=== PATIENT | female | born 1985 | race Caucasian/White ===

== ENCOUNTER 2021-08-10 12:16 | Emergency (ER) | payer BC ==
[2021-08-10] MEDS ORDERED: Sodium Chloride 0.9% 1000 ML 1,000 ML IV STA (13:01)
[2021-08-10] MEDS ORDERED: Sodium Chloride 0.9% 1000 ML 1,000 ML ONE (13:07)
--- NOTE | 2021-08-10 13:10 | ERPHSYRPT ---
- History of Present Illness Time Seen by Provider: 08/10/21 12:40 Source: patient Exam Limitations: no limitations Patient Subjective Stated Complaint: Dizziness Triage Nursing Assessment: Patient ambulated back to ED and transferred self to bed. Patient A+O X 3. Patient's skin pink, warm and dry. Patient complains of dizziness and neck soreness that started around 1130. Patient states her head felt heavy and made her neck sore. Patient also states her pulse had dropped 120 to 65. Patient states she is still dizzy. Physician History: Patient is a 36-year-old female presents to our ED from her place of employment for evaluation of dizziness. Patient states she was at work standing up when her symptoms started. Patient states she became dizzy. The room started spinning. Her body became weak. Her vision became blurred. She felt her head was heavy. Her neck began to feel sore. No syncope. No trauma. No seizure. Have improved but are still ongoing. Patient has a history of irritable bowel syndrome. She was recently diagnosed with enteritis. Patient is scheduled for colonoscopy. No associated chest pain. No nausea vomiting or diaphoresis. No diarrhea. No rash. No sick contacts at home. Patient is ambulatory. No focal or lateralizing symptoms. Patient voices no other complaints or concerns at this time. Timing/Duration: today Severity: moderate Modifying Factors: Improves With: nothing Associated Symptoms: No nausea, No vomiting, No abdominal pain, No shortness of breath, No diaphoresis, No cough, No chills, No chest pain, No fever, No headaches, No loss of appetite, No syncope, No seizure Allergies/Adverse Reactions: No Known Drug Allergies Allergy (Unverified 08/10/21 12:32) Home Medications: No Reportable Medications [No Reported Medications] 08/10/21 [History] Hx Influenza Vaccination/Date Given: No Hx Pneumococcal Vaccination/Date Given: No Immunizations Up to Date: Yes Travel Risk - International Travel Have you traveled outside of the country in past 3 weeks: No - Coronavirus Screening Are you exhibiting any of the following symptoms?: No Close contact with a COVID-19 positive Pt in past 14-21 Days: No - Vaccine Status Have you recieved a Covid-19 vaccination: No - Review of Systems Constitutional: No Symptoms, No Fever, No Chills Eyes: No Symptoms Ears, Nose, & Throat: No Symptoms Respiratory: No Symptoms, No Cough, No Dyspnea Cardiac: No Symptoms, No Chest Pain, No Edema, No Syncope Abdominal/Gastrointestinal: No Symptoms, No Abdominal Pain, No Nausea, No Vomiting, No Diarrhea Genitourinary Symptoms: No Symptoms, No Dysuria Musculoskeletal: No Symptoms, No Back Pain, No Neck Pain Skin: No Symptoms, No Rash Neurological: No Symptoms, No Dizziness, No Focal Weakness, No Sensory Changes Psychological: No Symptoms Endocrine: No Symptoms Hematologic/Lymphatic: No Symptoms Immunological/Allergic: No Symptoms All Other Systems: Reviewed and Negative - Past Medical History Pertinent Past Medical History: No Neurological History: No Pertinent History ENT History: No Pertinent History Cardiac History: No Pertinent History Respiratory History: No Pertinent History Endocrine Medical History: No Pertinent History Musculoskeletal History: No Pertinent History GI Medical History: No Pertinent History History: No Pertinent History Psycho-Social History: No Pertinent History Female Reproductive Disorders: No Pertinent History - Past Surgical History Past Surgical History: Yes Gastrointestinal: Cholecystectomy Female Surgical History: Section Other Surgical History: C section X 2 - Social History Smoking Status: Current every day smoker How long have you smoked: years Exposure to second hand smoke: No Drug Use: none Patient Lives Alone: No - Female History Hx Last Menstrual Period: last month Hx Now: No - Nursing Vital Signs Nursing Vital Signs: Initial Vital Signs Temperature 97.8 F 08/10/21 12:33 Blood Pressure 130/89 08/10/21 12:33 Pain Scale Pain Intensity 0 - Physical Exam General Appearance: no apparent distress, alert Eye Exam: PERRL/EOMI, eyes nml inspection Ears, Nose, Throat Exam: normal ENT inspection, TMs normal, pharynx normal, moist mucous membranes Neck Exam: normal inspection, non-tender, supple, full range of motion Respiratory Exam: normal breath sounds, lungs clear, airway intact, No respiratory distress Cardiovascular Exam: regular rate/rhythm, normal heart sounds, normal peripheral pulses Gastrointestinal/Abdomen Exam: soft, normal bowel sounds, No tenderness, No mass Back Exam: normal inspection, normal range of motion, No CVA tenderness, No vertebral tenderness Extremity Exam: normal inspection, normal range of motion, pelvis stable Neurologic Exam: alert, oriented x 3, cooperative, normal mood/affect, nml cerebellar function, nml station & gait, sensation nml, No motor deficits Skin Exam: normal color, warm, dry, No rash Lymphatic Exam: No adenopathy SpO2 Interpretation: normal SpO2: 98 O2 Delivery: Room Air - Course Nursing assessment & vital signs reviewed: Yes EKG Interpreted by Me: RATE (81), Sinus Rhythm, NORMAL AXIS, NORMAL INTERVALS - CT Exams Head CT Interpretation: Tele-radiologist Report (Normal CT head without contrast.) Ordered Tests: Active Orders 24 hr Category Date Time Status EKG-ER Only STAT Care 08/10/21 13:01 Active IV Insertion STAT Care 08/10/21 13:01 Active HEAD WITHOUT CONTRAST [CT] Stat Exams 08/10/21 13:03 Completed CBC W DIFF Stat Lab 08/10/21 12:48 Completed CMP Stat Lab 08/10/21 12:48 Completed D-DIMER QUANTITATIVE Stat Lab 08/10/21 14:44 Completed HCG,QUALITATIVE URINE Stat Lab 08/10/21 13:05 Completed LIPASE Stat Lab 08/10/21 12:48 Completed TROPONIN Q3H Lab 08/10/21 12:48 Completed TROPONIN Q3H Lab 08/10/21 16:15 Ordered TROPONIN Q3H Lab 08/10/21 19:15 Ordered TROPONIN Q3H Lab 08/10/21 22:15 Ordered TROPONIN Q3H Lab 08/11/21 01:15 Ordered TSH, 3RD Generation Stat Lab 08/10/21 12:48 Completed UA W/RFX CULTURE Stat Lab 08/10/21 13:05 Completed Urine Triage Profile Stat Lab 08/10/21 13:05 Completed Medication Summary Discontinued Medications Generic Name Dose Route Start Last Admin Trade Name Freq PRN Reason Stop Dose Admin Sodium Chloride 1,000 mls @ 999 mls/hr 08/10/21 13:01 08/10/21 14:10 Sodium Chloride 0.9% 1000 Ml IV 08/10/21 14:01 Infused .Q1H1M STA Infusion Sodium Chloride Confirm 08/10/21 13:07 Sodium Chloride 0.9% 1000 Ml Administered 08/10/21 13:08 Dose 1,000 mls @ ud .ROUTE .[facility] Lab/Rad Data: Laboratory Result Diagrams 08/10/21 12:48 08/10/21 12:48 Laboratory Results 08/10/21 08/10/21 08/10/21 Range/Units 14:44 13:05 13:05 WBC (4.0-10.5) x10^3/uL RBC (4.1-5.4) x10^6/uL Hgb (12.0-16.0) g/dL Hct (35-47) % MCV (78-100) fL MCH (26-32) pg MCHC (32-36) g/dL RDW (11.5-14.0) % Plt Count (150-450) x10^3/uL MPV (7.5-11.0) fL Gran % (36.0-66.0) % Immature Gran % (Auto) (0.00-0.4) % Nucleat RBC Rel Count (0.00-0.1) % Eos # (Auto) (0-0.5) x10^3/uL Immature Gran # (Auto) (0.00-0.03) x10^3u/L Absolute Lymphs (auto) (1.0-4.6) x10^3/uL Absolute Monos (auto) (0.0-1.3) x10^3/uL Absolute Nucleated RBC (0.00-0.01) x10^3u/L Lymphocytes % (24.0-44.0) % Monocytes % (0.0-12.0) % Eosinophils % (0.00-5.0) % Basophils % (0.0-0.4) % Absolute Granulocytes (1.4-6.9) x10^3/uL Basophils # (0-0.4) x10^3/uL D-Dimer 0.19 (0.0-0.50) ng/mL Sodium (137-145) mmol/L Potassium (3.5-5.1) mmol/L Chloride (98-107) mmol/L Carbon Dioxide (22-30) mmol/L Anion Gap (5-15) MEQ/L BUN (7-17) mg/dL Creatinine (0.52-1.04) mg/dL Estimated GFR ML/MIN Glucose (74-106) mg/dL Calcium (8.4-10.2) mg/dL Total Bilirubin (0.2-1.3) mg/dL AST (14-36) U/L ALT (0-35) U/L Alkaline Phosphatase (38-126) U/L Troponin I (0.000-0.034) ng/mL Serum Total Protein (6.3-8.2) g/dL Albumin (3.5-5.0) g/dL Lipase (23-300) U/L TSH 3rd Generation (0.47-4.68) mIU/L Urinalys Dipstick Clnc MAIN LAB Urine Color YELLOW (YELLOW) Urine Appearance CLEAR (CLEAR) Urine pH 5.5 (5-6) Ur Specific [place] <=1.005 (1.005-1.025) POC Urine Protein Conf NEGATIVE (Negative) Urine Ketones NEGATIVE (NEGATIVE) Urine Nitrite NEGATIVE (NEGATIVE) Urine Bilirubin NEGATIVE (NEGATIVE) Urine Urobilinogen 0.2 (0-1) mg/dL Urine Leukocytes NEGATIVE (NEGATIVE) Urine WBC (Auto) 0-2 (0-5) /HPF Urine RBC (Auto) 0-2 (0-2) /HPF U Epithel Cells (Auto) RARE (FEW) /HPF Urine Bacteria (Auto) RARE (NEGATIVE) /HPF Urine RBC TRACE-INTACT (0-5) [place]/ul Ur Culture Indicated? NO Urine Glucose NEGATIVE (NEGATIVE) mg/dL Urine HCG, Qual NEGATIVE (Negative) Urine Opiates Level (NEGATIVE) Ur Methadone (NEGATIVE) Urine Barbiturates (NEGATIVE) Ur Phencyclidine (PCP) (NEGATIVE) Urine Amphetamine (NEGATIVE) U Benzodiazepine Level (NEGATIVE) Urine Cocaine (NEGATIVE) Urine Marijuana (THC) (NEGATIVE) 08/10/21 08/10/21 08/10/21 Range/Units 13:05 12:48 12:48 WBC (4.0-10.5) x10^3/uL RBC (4.1-5.4) x10^6/uL Hgb (12.0-16.0) g/dL Hct (35-47) % MCV (78-100) fL MCH (26-32) pg MCHC (32-36) g/dL RDW (11.5-14.0) % Plt Count (150-450) x10^3/uL MPV (7.5-11.0) fL Gran % (36.0-66.0) % Immature Gran % (Auto) (0.00-0.4) % Nucleat RBC Rel Count (0.00-0.1) % Eos # (Auto) (0-0.5) x10^3/uL Immature Gran # (Auto) (0.00-0.03) x10^3u/L Absolute Lymphs (auto) (1.0-4.6) x10^3/uL Absolute Monos (auto) (0.0-1.3) x10^3/uL Absolute Nucleated RBC (0.00-0.01) x10^3u/L Lymphocytes % (24.0-44.0) % Monocytes % (0.0-12.0) % Eosinophils % (0.00-5.0) % Basophils % (0.0-0.4) % Absolute Granulocytes (1.4-6.9) x10^3/uL Basophils # (0-0.4) x10^3/uL D-Dimer (0.0-0.50) ng/mL Sodium 138 (137-145) mmol/L Potassium 3.7 (3.5-5.1) mmol/L Chloride 105 (98-107) mmol/L Carbon Dioxide 21 L (22-30) mmol/L Anion Gap 15.8 H (5-15) MEQ/L BUN 8 (7-17) mg/dL Creatinine 0.53 (0.52-1.04) mg/dL Estimated GFR > 60.0 ML/MIN Glucose 89 (74-106) mg/dL Calcium 9.3 (8.4-10.2) mg/dL Total Bilirubin 0.70 (0.2-1.3) mg/dL AST 21 (14-36) U/L ALT 14 (0-35) U/L Alkaline Phosphatase 60 (38-126) U/L Troponin I < 0.012 (0.000-0.034) ng/mL Serum Total Protein 7.7 (6.3-8.2) g/dL Albumin 4.5 (3.5-5.0) g/dL Lipase 125 (23-300) U/L TSH 3rd Generation 0.629 (0.47-4.68) mIU/L Urinalys Dipstick Clnc Urine Color (YELLOW) Urine Appearance (CLEAR) Urine pH (5-6) Ur Specific [place] (1.005-1.025) POC Urine Protein Conf (Negative) Urine Ketones (NEGATIVE) Urine Nitrite (NEGATIVE) Urine Bilirubin (NEGATIVE) Urine Urobilinogen (0-1) mg/dL Urine Leukocytes (NEGATIVE) Urine WBC (Auto) (0-5) /HPF Urine RBC (Auto) (0-2) /HPF U Epithel Cells (Auto) (FEW) /HPF Urine Bacteria (Auto) (NEGATIVE) /HPF Urine RBC (0-5) [place]/ul Ur Culture Indicated? Urine Glucose (NEGATIVE) mg/dL Urine HCG, Qual (Negative) Urine Opiates Level NEGATIVE (NEGATIVE) Ur Methadone NEGATIVE (NEGATIVE) Urine Barbiturates NEGATIVE (NEGATIVE) Ur Phencyclidine (PCP) NEGATIVE (NEGATIVE) Urine Amphetamine NEGATIVE (NEGATIVE) U Benzodiazepine Level NEGATIVE (NEGATIVE) Urine Cocaine NEGATIVE (NEGATIVE) Urine Marijuana (THC) NEGATIVE (NEGATIVE) 08/10/21 Range/Units 12:48 WBC 9.4 (4.0-10.5) x10^3/uL RBC 4.35 (4.1-5.4) x10^6/uL Hgb 13.1 (12.0-16.0) g/dL Hct 40.7 (35-47) % MCV 93.6 (78-100) fL MCH 30.1 (26-32) pg MCHC 32.2 (32-36) g/dL RDW 13.7 (11.5-14.0) % Plt Count 312 (150-450) x10^3/uL MPV 10.2 (7.5-11.0) fL Gran % 65.0 (36.0-66.0) % Immature Gran % (Auto) 0.4 (0.00-0.4) % Nucleat RBC Rel Count 0.0 (0.00-0.1) % Eos # (Auto) 0.04 (0-0.5) x10^3/uL Immature Gran # (Auto) 0.04 H (0.00-0.03) x10^3u/L Absolute Lymphs (auto) 2.56 (1.0-4.6) x10^3/uL Absolute Monos (auto) 0.60 (0.0-1.3) x10^3/uL Absolute Nucleated RBC 0.00 (0.00-0.01) x10^3u/L Lymphocytes % 27.2 (24.0-44.0) % Monocytes % 6.4 (0.0-12.0) % Eosinophils % 0.4 (0.00-5.0) % Basophils % 0.6 (0.0-0.4) % Absolute Granulocytes 6.12 (1.4-6.9) x10^3/uL Basophils # 0.06 (0-0.4) x10^3/uL D-Dimer (0.0-0.50) ng/mL Sodium (137-145) mmol/L Potassium (3.5-5.1) mmol/L Chloride (98-107) mmol/L Carbon Dioxide (22-30) mmol/L Anion Gap (5-15) MEQ/L BUN (7-17) mg/dL Creatinine (0.52-1.04) mg/dL Estimated GFR ML/MIN Glucose (74-106) mg/dL Calcium (8.4-10.2) mg/dL Total Bilirubin (0.2-1.3) mg/dL AST (14-36) U/L ALT (0-35) U/L Alkaline Phosphatase (38-126) U/L Troponin I (0.000-0.034) ng/mL Serum Total Protein (6.3-8.2) g/dL Albumin (3.5-5.0) g/dL Lipase (23-300) U/L TSH 3rd Generation (0.47-4.68) mIU/L Urinalys Dipstick Clnc Urine Color (YELLOW) Urine Appearance (CLEAR) Urine pH (5-6) Ur Specific [place] (1.005-1.025) POC Urine Protein Conf (Negative) Urine Ketones (NEGATIVE) Urine Nitrite (NEGATIVE) Urine Bilirubin (NEGATIVE) Urine Urobilinogen (0-1) mg/dL Urine Leukocytes (NEGATIVE) Urine WBC (Auto) (0-5) /HPF Urine RBC (Auto) (0-2) /HPF U Epithel Cells (Auto) (FEW) /HPF Urine Bacteria (Auto) (NEGATIVE) /HPF Urine RBC (0-5) [place]/ul Ur Culture Indicated? Urine Glucose (NEGATIVE) mg/dL Urine HCG, Qual (Negative) Urine Opiates Level (NEGATIVE) Ur Methadone (NEGATIVE) Urine Barbiturates (NEGATIVE) Ur Phencyclidine (PCP) (NEGATIVE) Urine Amphetamine (NEGATIVE) U Benzodiazepine Level (NEGATIVE) Urine Cocaine (NEGATIVE) Urine Marijuana (THC) (NEGATIVE) - Progress Progress: improved Progress Note: Patient reassessed. She feels better. Patient believes IV fluids helped her. Smoking cessation discussed. CT head unremarkable. Basic labs nonremarkable. D-dimer negative. TSH is borderline normal on our testing today. Urinalysis negative. Troponin negative. Urine triage negative. Orthostatics performed. Orthostatics marginally positive. Patient may benefit from a tilt table test. Will discharge at this time. Patient advised to follow-up with primary care doctor within 48 hours for evaluation. Patient states she has been experiencing the symptoms for some time. She has been worked up several times in the past. Patient states nobody can figure out what the problem is. Patient symptoms may be postural/orthostatic hypotension. Patient advised of this possibility and will discuss further testing with her primary care doctor. Portions of this note were created with voice recognition technology. There may be grammatical, spelling, punctuation or sound alike errors 08/10/21 15:00 Counseled pt/family regarding: lab results, diagnosis, need for follow-up, rad results - Departure Departure Disposition: Home Clinical Impression: Dizziness, Near syncope, Orthostatic hypotension Condition: Stable Critical Care Time: No Referrals: ABIGAIL RAMOS MD [Primary Care Provider] - Follow up/PCP as directed Additional Instructions: Discharge/Care Plan DAMEON VILLALPANDO was seen on 08/10/21 in the Emergency Room. The patient was counseled regarding Diagnosis,Lab results, Imaging studies, need for follow up and when to return to the Emergency Room. Prescriptions given: Discharge Note I have spoken with the patient and/or caregivers. I have explained the patient's condition, diagnosis and treatment plan based on the information available to me at this time. I have answered the patient's and/or caregiver's questions and addressed any concerns. The patient and/or caregivers have as good understanding of the patient's diagnosis, condition and treatment plan as can be expected at this point. The vital signs have been stable. The patient's condition is stable and appropriate for discharge from the emergency department. The patient will pursue further outpatient evaluation with the primary care physician or other designated or consulting physician as outlined in the discharge instructions. The patient and/or caregivers are agreeable to this plan of care and follow-up instructions have been explained in detail. The patient and/or caregivers have received these instruction. The patient/and or caregivers are aware that any significant change in condition or worsening of symptoms should prompt an immediate return to this or the closest emergency department or call 911. Forms: Work/School Release Form
[2021-08-10 13:11] VITALS: O2SAT 98
[2021-08-10 13:14] LABS: Absolute Neutrophil Ct (ANC) 6.12 x10^3/uL (1.4-6.9); Basophil (Absolute #) 0.06 x10^3/uL (0-0.4); Eosinophil % 0.4 % (0.00-5.0); Eosinophil (Absolute #) 0.04 x10^3/uL (0-0.5); Hematocrit 40.7 % (35-47); Hemoglobin 13.1 g/dL (12.0-16.0); Lymphocyte (Absolute #) 2.56 x10^3/uL (1.0-4.6); Lymphocytes % 27.2 % (24.0-44.0); Mean Cell Volume 93.6 fL (78-100); Mean Corpuscular Hemoglobin 30.1 pg (26-32); Mean Corpuscular Hgb Concent. 32.2 g/dL (32-36); Mean Platelet Volume 10.2 fL (7.5-11.0); Monocytes % 6.4 % (0.0-12.0); Platelet Count 312 x10^3/uL (150-450); Red Blood Count 4.35 x10^6/uL (4.1-5.4); Red Cell Distribution Width 13.7 % (11.5-14.0); White Blood Count 9.4 x10^3/uL (4.0-10.5)
[2021-08-10 13:39] LABS: Bacteria RARE /HPF (NEGATIVE); Epithelial Cells RARE /HPF (FEW); RBC 0-2 /HPF (0-2); WBC 0-2 /HPF (0-5)
[2021-08-10 13:40] LABS: Appearance CLEAR (CLEAR); Glucose NEGATIVE (NEGATIVE)
[2021-08-10 13:41] LABS: Bilirubin NEGATIVE (NEGATIVE); Ketones NEGATIVE (NEGATIVE); Nitrite NEGATIVE (NEGATIVE); Ph 5.5 (5-6); Protein,Urine Dip NEGATIVE (Negative); RBC TRACE-INTACT Ery/ul (0-5); Specific Gravity <=1.005 (1.005-1.025); Urine Cultured Indicated? NO; Urobilinogen 0.2 mg/dL (0-1)
[2021-08-10 13:44] LABS: Dipstick done @ ? MAIN LAB
[2021-08-10 14:00] LABS: Amphetamine,Urine NEGATIVE (NEGATIVE); Barbiturate,Urine NEGATIVE (NEGATIVE); Benzodiazepine,Urine NEGATIVE (NEGATIVE); Cocaine,Urine NEGATIVE (NEGATIVE); Methadone,Urine NEGATIVE (NEGATIVE); Opiate,Urine NEGATIVE (NEGATIVE); PCP,Urine NEGATIVE (NEGATIVE); THC,Urine NEGATIVE (NEGATIVE)
[2021-08-10 14:28] LABS: ALBUMIN 4.5 g/dL (3.5-5.0); ALKALINE PHOSPHATASE 60 U/L (38-126); ANION GAP 15.8 MEQ/L (5-15); BLOOD UREA NITROGEN 8 mg/dL (7-17); CHLORIDE 105 mmol/L (98-107); Calcium 9.3 mg/dL (8.4-10.2); Carbon Dioxide 21 mmol/L (22-30); Creatinine 1 0.53 mg/dL (0.52-1.04); EST GLOMERULAR FILTRATION RATE > 60.0 ML/MIN; Glucose 89 mg/dL (74-106); LIPASE 125 U/L (23-300); Potassium 3.7 mmol/L (3.5-5.1); SGOT/AST 21 U/L (14-36); SGPT/ALT 14 U/L (0-35); SODIUM 138 mmol/L (137-145); TSH, 3RD Generation 0.629 mIU/L (0.47-4.68); Total Protein 7.7 g/dL (6.3-8.2)
--- NOTE | 2021-08-10 14:30 | XRAY ---
Indication: Dizziness and blurred vision. Multiple contiguous axial images obtained through the head without contrast. Comparison: None Normal appearing brain parenchyma, ventricles, and bony calvarium. Visualized paranasal sinuses and mastoid air cells are clear. Impression: Normal CT head without contrast exam.
[2021-08-10 15:12] VITALS: BP 113/73; PULSE 80
== END 2021-08-10 15:29 | disposition home or self-care (01) ==
LOC: ED 12:16
DX: R42 Dizziness and giddiness (principal); I95.1 Orthostatic hypotension; Z72.0 Tobacco use
CPT/HCPCS: 36000; 36415; 70450; 80053; 80307; 81015; 83690; 84443; 84484; 84703; 85025; 85379; 93005; 93225; 96360; 99284